=== PATIENT | female | born 1970 | race Caucasian/White ===

== ENCOUNTER 2025-07-22 12:52 | Emergency (ER) | payer MEDICARE, SELFPAY ==
[2025-07-22] VITALS (22 sets, daily range): BP systolic 111–140; BP diastolic 75–86; PULSE 100–123; RESP 18–29; TEMP 37.7–38.1; O2SAT 95–100
--- NOTE | ~2025-07-22 | XR_ITS ---
EXAMINATION: XR chest 1V portable COMPARISON: No comparisons available. HISTORY: dyspnea FINDINGS: The lungs are clear, no effusion. No pneumothorax. Heart is normal size. Mediastinal and hilar contours are within normal limits. Bony thorax no acute abnormality. Miscellaneous: None Impression: No acute cardiopulmonary abnormality. Reviewed, dictated and finalized at location [facility] Impression: No acute cardiopulmonary abnormality.
--- NOTE | ~2025-07-22 | CT_ITS ---
EXAMINATION:CT diagnostic chest wo con DATE: 07/22/2025 15:15 INDICATION: Shortness of breath. TECHNIQUE: Computed tomography (CT) of the chest was performed without intravenous contrast. Automated exposure control and iterative reconstruction technique were employed. The dose-length product (DLP) was 190.39 mGy-cm. COMPARISON: None. FINDINGS: There is moderate emphysema. There are endobronchial valves in left upper lobe. There is complete collapse of left upper lobe. There is mild atelectasis in left lower lobe. No pleural effusion. The heart size is normal. There is a trace pericardial effusion. There are coronary artery calcifications. There is moderate cervical and thoracic spondylosis. IMPRESSION: 1. Moderate emphysema. 2. Endobronchial valves in left upper lobe with complete collapse of left upper lobe. Reviewed, dictated and finalized at location [facility]
--- NOTE | 2025-07-22 13:25 | ECG_ITS ---
Test Date: 2025-07-22 13:30:17 Measurements Intervals Lyle Rate: 106 P: 70 MD: 149 QRS: 76 QRSD: 72 T: 70 QT: 326 QTc: 433 Interpretive Statements SINUS TACHYCARDIA SEPTAL MYOCARDIAL INFARCTION , OF INDETERMINATE AGE [40+ ms Q WAVE IN V1/V2] MODERATE T-WAVE ABNORMALITY, CONSIDER ANTERIOR ISCHEMIA [-0.1+ mV T-WAVE IN V3/V4] No previous ECG available for comparison Electronically Signed On 07-22-2025 18:56:34 SAFE TECHNICIAN by Ken Treadwell M.D.
--- NOTE | 2025-07-22 13:39 | ED.GENADULT ---
HPI - General Adult General Chief complaint: Shortness of Breath/Dyspnea Stated complaint: SOB, cough, hx of COPD and Asthma Time Seen by Provider: 07/22/25 13:21 History of Present Illness HPI narrative: 55-year-old female presented emergency department for evaluation for generalized fatigue and increased shortness of breath that is been ongoing for the last 4 days. Patient does have a previous history of pneumonia and COPD. Patient reports she quit smoking approximately 2 years ago. Patient is currently out of town and was attempting to make it back to home but only made about 4 hours and had worsening symptoms and stopped it and [facility] to the way waited for her symptoms. Related Data Allergies Allergy/AdvReac Type Severity Reaction Status Date / Time doxycycline Allergy Intermediate Hives Verified 07/22/25 13:56 levofloxacin Allergy Intermediate Hives Verified 07/22/25 13:56 hydromorphone AdvReac Mild Confusion Verified 07/22/25 13:56 Review of Systems Review of Systems: All systems reviewed & are unremarkable except as noted in HPI and below Exam Narrative: APPEARANCE: ill-appearing HEAD: normocephalic, atraumatic. EYES: PERRLA/EOMI, conjunctivae clear. NOSE: Normal no drainage EARS:TMS clear with good light reflex. THROAT: Pharynx clear, no exudate. NECK: Supple. No adenopathy, no masses. RESPIRATORY: Airway patent, respirations nonlabored. Clear to auscultation bilaterally, no rales, rhonchi, wheezing. CARDIOVASCULAR: Regular rate and rhythm without murmurs rubs or gallops. ABDOMINAL: Soft, nontender, nondistended, normal bowel sounds MUSCULOSKELETAL: Moves all extremities. Strength/ROM intact, No edema, No calf tenderness. NEURO: Alert. Cranial nerves II through XII intact. Good gait. Good coordination SKIN: Warm, dry. Normal Color PSYCHIATRIC: Normal affect/mood. Course Vital Signs Vital signs: Vital Signs Temperature 99.9 F H 07/22/25 13:21 Pulse Rate 116 H 07/22/25 13:21 Respiratory Rate 20 07/22/25 13:21 Blood Pressure 111/79 07/22/25 13:21 Pulse Oximetry 96 07/22/25 13:21 Oxygen Delivery Room Air 07/22/25 13:21 Temperature 100.6 F H 07/22/25 13:38 Pulse Rate 123 H 07/22/25 15:16 Respiratory Rate 20 07/22/25 15:16 Blood Pressure 116/75 07/22/25 13:46 Pulse Oximetry 97 07/22/25 15:16 Oxygen Delivery Room Air 07/22/25 13:55 Medical Decision Making Vital Signs Vital Signs: Vital Signs Temperature 99.9 F H 07/22/25 13:21 Pulse Rate 116 H 07/22/25 13:21 Respiratory Rate 20 07/22/25 13:21 Blood Pressure 111/79 07/22/25 13:21 Pulse Oximetry 96 07/22/25 13:21 Oxygen Delivery Room Air 07/22/25 13:21 Temperature 100.6 F H 07/22/25 13:38 Pulse Rate 123 H 07/22/25 15:16 Respiratory Rate 20 07/22/25 15:16 Blood Pressure 116/75 07/22/25 13:46 Pulse Oximetry 97 07/22/25 15:16 Oxygen Delivery Room Air 07/22/25 13:55 Lab Data 07/22/25 13:37 07/22/25 13:37 Labs: Lab Results 07/22/25 07/22/25 Range/Units 13:37 13:40 WBC 12.1 H (4.5-10.0) K/mm3 RBC 4.66 (4.2-5.4) M/mm3 Hgb 12.9 (12.0-15.0) g/dL Hct 38.5 (37.0-47.0) % MCV 82.6 (80-100) fl MCH 27.7 (26-34) pg MCHC 33.5 (32-36) g/dl RDW 13.5 (11.5-14.5) % Plt Count 277 (150-375) k/mm3 MPV 8.5 (7.4-10.4) fl Immature Gran % (Auto) 0.6 H (0-0.5) % Neut % (Auto) 76.4 H (45.5-73.1) % Lymph % (Auto) 11.2 L (18.3-44.2) % [place] % (Auto) 11.1 H (2.6-8.5) % Eos % (Auto) 0.3 (0-4.4) % Baso % (Auto) 0.4 (0.2-1.2) % Lymph # (Auto) 1.36 (0.9-3.2) K/mm3 [place] # (Auto) 1.4 H (0.1-0.6) K/mm3 Eos # (Auto) 0.0 (0-0.3) K/mm3 Baso # (Auto) 0.1 (0.0-0.1) K/mm3 Abs Immat Gran (auto) 0.07 H (0.00-0.031) K/mm3 Absolute Neuts (auto) 9.3 H (1.3-6.7) K/mm3 Absolute Nucleated RBC 0.000 (0.0-0.012) K/mm3 Nucleated RBC % 0.0 (0.0-0.2) % Sodium 136 L (137-145) mmol/L Potassium 3.6 (3.4-5.0) mmol/L Chloride 100 (98-107) mmol/L Carbon Dioxide 25 (22-30) mmol/L Anion Gap 11 (4-12) mmol/L BUN 7 (7-17) mg/dL Creatinine 0.64 L (0.7-1.0) mg/dL Estim Creat Clear Calc 78 ml/min Estimated GFR > 60 (59 - ) Glucose 106 (65-110) mg/dL Lactic Acid 1.3 (0.7-2.0) mmol/L Calcium 9.5 (8.4-10.2) mg/dL Total Bilirubin 0.7 (0.2-1.3) mg/dL AST 21 (14-36) U/L ALT 20 (6-35) U/L Alkaline Phosphatase 145 H (38-126) U/L Total Protein 8.2 (6.3-8.2) g/dL Albumin 4.5 (3.5-5.1) g/dL Influenza A (RT-PCR) Negative (Negative) Influenza B (RT-PCR) Negative (Negative) RSV (RT-PCR) Negative (Negative) SARS-CoV-2 RNA (RT-PCR) Negative (Negative) Discharge Plan Discharge Clinical Impression: Fever, Acute dyspnea Patient Disposition: Home Condition: Stable Instructions: Antibiotic Form Additional Instructions: Antibiotic as directed until completed. Prednisone as directed. Have close follow-up with your primary care physician and sewage disposal worker. If you have any worsening symptoms then please call or return to the emergency department. Patient Language: French Prescriptions: New azithromycin 250 mg tablet See Rx Instructions .ROUTE .COMPLEX Qty: 6 0RF Rx Instructions: For 250 mg dose pack: take 500 mg today (day 1), then 250 mg for 4 days (days 2-5) albuterol sulfate 90 mcg/actuation HFA aerosol inhaler 1 puff inhalation QID Qty: 6.7 0RF amoxicillin-pot clavulanate 875-125 mg tablet 1 tablet PO Q12H 7 Days Qty: 14 0RF Follow-up/Referrals: PHYSICIAN NOT ON STAFF,NONSTAFF [Non-Staff]
[2025-07-22 13:50] LABS: Hematocrit 38.5 % (37.0-47.0); Hemoglobin 12.9 g/dL (12.0-15.0); Immature Granulocyte Percent A 0.6 % (0-0.5); Lymphocytes Absolute Auto 1.36 K/mm3 (0.9-3.2); Mean Corpuscular HGB Conc 33.5 g/dl (32-36); Mean Corpuscular Hemoglobin 27.7 pg (26-34); Mean Corpuscular Volume 82.6 fl (80-100); Nucleated Red Blood Cells Absolute Auto 0.000 K/mm3 (0.0-0.012); Nucleated Red Blood Cells Perc 0.0 % (0.0-0.2); Platelet Count Result 277 k/mm3 (150-375); Red Blood Count 4.66 M/mm3 (4.2-5.4); White Blood Count 12.1 K/mm3 (4.5-10.0)
[2025-07-22] MEDS: ALBUTEROL SULFATE NEB 2.5 MG/3 ML INH 5 MG INHALATION (13:51)
[2025-07-22] MEDS: ACETAMINOPHEN 500 MG TABLET 1000 MG PO (13:57)
[2025-07-22] MEDS: LACTATED RINGERS 1,000 ML 999 ML IV CONT (13:57)
[2025-07-22 14:05] LABS: Alanine Aminotransferase 20 U/L (6-35); Albumin Level 4.5 g/dL (3.5-5.1); Alkaline Phosphatase 145 U/L (38-126); Anion Gap 11 mmol/L (4-12); Aspartate Amino Transferase 21 U/L (14-36); Bilirubin,Total 0.7 mg/dL (0.2-1.3); Blood Urea Nitrogen 7 mg/dL (7-17); Calcium 9.5 mg/dL (8.4-10.2); Carbon Dioxide 25 mmol/L (22-30); Chloride 100 mmol/L (98-107); Estimated CRCL calculation 78 ml/min; Estimated Glomerular Filt Rate > 60; Glucose 106 mg/dL (65-110); Potassium 3.6 mmol/L (3.4-5.0); Sodium 136 mmol/L (137-145); Total Protein 8.2 g/dL (6.3-8.2)
[2025-07-22 14:25] LABS: Influenza A QL RT-PCR Negative (Negative); Influenza B QL RT-PCR Negative (Negative); RSV RNA, RT-PCR Negative (Negative); SARS-CoV-2 RNA PCR Negative (Negative)
[2025-07-22] MEDS: AZITHROMYCIN 250 MG TABLET 500 MG PO (16:47)
[2025-07-22] MEDS: KETOROLAC 30 MG/ML VIAL (*BKC) IV PUSH (16:47)
== END 2025-07-22 16:59 | disposition home or self-care (01) ==
PROVIDERS: Emergency Provider Emergency Medicine
DX: R06.00 Dyspnea, unspecified (principal); R50.9 Fever, unspecified; Z20.822 Contact with and (suspected) exposure to COVID-19; Z87.891 Personal history of nicotine dependence; Z87.01 Personal history of pneumonia (recurrent)
CPT/HCPCS: 36415; 71045; 71250; 80053; 83605; 85025; 87637; 93005; 94640; 96361; 96374; 96375; 99284; A9270; J1885; J2919; J7120